=== PATIENT | female | born 1995 | race Caucasian/White ===

== ENCOUNTER 2020-06-26 03:09 | Observation (INO) | payer OTHER ==
[~2020-06-26] VITALS: Ht 160 cm; Wt 86.0 kg
[2020-06-26 03:13] VITALS: BP 115/61
--- NOTE | 2020-06-26 04:03 | NUR ---
Patient presents to ER c/o low quad abd pain, mostly in the RLQ. Patient was sent over from [facility] for funeral pre arrangement counselor consult. Patient states she was dx with cysts on ovaries. Patient is in NAD. Respirations even and unlabored.
[2020-06-26] MEDS ORDERED: BUPIVACAINE/PF 0.25% ONE (04:43)
[2020-06-26] MEDS ORDERED: EPINEPHRINE 1 MG/ML, 1ML ONE (04:44)
--- NOTE | 2020-06-26 04:47 | NUR ---
Report given to OR. Patient to be transferred to room 460 with RUDDY Haley.
[2020-06-26] MEDS ORDERED: FENTANYL PF 250 MCG/5ML ONE (04:48)
[2020-06-26] MEDS ORDERED: MIDAZOLAM 1 MG/ML, 2ML ONE (04:48)
[2020-06-26] MEDS ORDERED: ONDANSETRON 2MG/ML, 2ML IVPush PRN ×3 (05:00→06:00)
[2020-06-26] MEDS ORDERED: MORPHINE SULFATE 4 MG/ML, 1ML IVPush PRN (05:00)
[2020-06-26] MEDS ORDERED: DEXAMETHASONE 4 MG/ML, 1ML ONE (05:42)
[2020-06-26] MEDS ORDERED: GLYCOPYRROLATE 0.2MG/1ML, 5ML ONE (05:42)
[2020-06-26] MEDS ORDERED: ONDANSETRON 2MG/ML, 2ML ONE (05:42)
[2020-06-26] MEDS ORDERED: SUCCINYLCHOLINE 20 MG/ML, 10ML ONE (05:42)
[2020-06-26] MEDS ORDERED: NEOSTIGMINE 1 MG/ML, 10ML ONE (05:42)
[2020-06-26] MEDS ORDERED: ROCURONIUM 10MG/ML,5ML ONE (05:42)
[2020-06-26] MEDS ORDERED: PROPOFOL 10 MG/ML, 20ML ONE (05:42)
[2020-06-26] MEDS ORDERED: CEFAZOLIN 1,000 MG ONE (05:42)
[2020-06-26] MEDS ORDERED: LACTATED RINGERS 1,000 ML IV SCH (05:50)
[2020-06-26] MEDS ORDERED: KETOROLAC 30 MG/1 ML IVPush PRN (06:00)
[2020-06-26] MEDS ORDERED: HYDROcodone/APAP 5/325 TABLET PO PRN (06:00)
[2020-06-26] MEDS ORDERED: DIAZEPAM 5 MG/ML, 2ML IVPush PRN (06:00)
[2020-06-26] MEDS ORDERED: LORazepam 2 MG/ML, 1ML IVPush PRN (06:00)
[2020-06-26] MEDS ORDERED: ACETAMINOPHEN 325 MG TABLET PO PRN (06:00)
[2020-06-26] MEDS ORDERED: OXYcodone 5 MG/5 ML ORAL.SOL UDC PO PRN (06:00)
[2020-06-26] MEDS ORDERED: PROMETHAZINE 25 MG SUPP PR PRN (06:00)
[2020-06-26] MEDS ORDERED: PROMETHAZINE 25 MG/ML, 1ML IVPush PRN (06:00)
[2020-06-26] MEDS ORDERED: BUPIVACAINE/PF 0.25% INFIL ONE (06:00)
[2020-06-26] MEDS ORDERED: IBUPROFEN 600 MG TABLET PO PRN (06:00)
[2020-06-26] MEDS ORDERED: EPINEPHRINE 1 MG/ML, 1ML INFIL ONE (06:01)
[2020-06-26] MEDS ORDERED: KETOROLAC 30 MG/1 ML ONE (06:05)
[2020-06-26] MEDS ORDERED: FENTANYL PF 100 MCG/2ML ONE (06:05)
[2020-06-26] MEDS ORDERED: OXYcodone 5 MG/5 ML ORAL.SOL UDC ONE (06:05)
[2020-06-26] MEDS: FENTANYL PF 100 MCG/2ML IV PRN ×2 (06:11→06:16)
[2020-06-26] MEDS: HYDROmorphone 1 MG/ML, 1ML INJ IVPush PRN ×2 (06:19→06:24)
[2020-06-26] MEDS ORDERED: HYDROmorphone 1 MG/ML, 1ML INJ ONE (06:35)
[2020-06-26] MEDS ORDERED: HYDR-3240 PO (11:44)
[2020-06-26] MEDS ORDERED: IBUP200T49 PO (11:44)
== END 2020-06-26 11:54 | disposition home or self-care (01) ==
LOC: OR 04:52 → INTOOBSV 05:07 → EDIP 05:07 → 4NE 06:52 → DCLOUNGE 11:42
PROVIDERS: ADMIT Student in an Organized Health Care Education/Training Program; ATTEND Student in an Organized Health Care Education/Training Program
DX: Z03.818 Encounter for observation for suspected exposure to other biological agents ruled out (principal); N83.201 Unspecified ovarian cyst, right side; K66.1 Hemoperitoneum; Z91.040 Latex allergy status
CPT/HCPCS: 58662; 87635; 88304; 99284; G0378; J0171; J0330; J0690; J1100; J1170; J1885; J2250; J2405; J2704; J2710; J3010; J3490

== ENCOUNTER 2020-06-30 08:06 | Emergency (ER) | payer BC, OTHER ==
[~2020-06-30] VITALS: Ht 160 cm; Wt 85.2 kg
[~2020-06-30 08:06] MED LIST: HYDR-3240 PO; IBUP200T49 PO
[2020-06-30] MEDS ORDERED: KETOROLAC 30 MG/1 ML ONE (08:43)
[2020-06-30] MEDS ORDERED: SODIUM CHLORIDE 0.9% 1,000ML IVBOLUS ONE (09:00)
[2020-06-30] MEDS ORDERED: KETOROLAC 30 MG/1 ML IVPush ONE (09:00)
[2020-06-30 09:03] LABS: BASOPHILS # (AUTO) 0.03 x10^3/uL (0-0.1); BASOPHILS % (AUTO) 0 % (0-1); EOSINOPHILS # (AUTO) 0.05 x10^3/uL (0-0.4); EOSINOPHILS % (AUTO) 1 % (1-7); LYMPHOCYTES # (AUTO) 1.88 x10^3/uL (1-3.4); LYMPHOCYTES % (AUTO) 25 % (22-44); MD NO; MEAN CORPUSCULAR HEMOGLOBIN 27.7 pg (27.0-34.8); MEAN CORPUSCULAR HGB CONC 32.3 g/dL (32.4-35.8); MEAN CORPUSCULAR VOLUME 85.7 fL (80-100); MEAN PLATELET VOLUME 8.8 fL (7.4-10.4); MONOCYTES % (AUTO) 5 % (2-9); NEUTROPHILS # (AUTO) 5.26 x10^3/uL (1.8-6.8); NEUTROPHILS % (AUTO) 69 % (42-75); PLATELET COUNT 240 x10^3/uL (130-400); RED BLOOD COUNT 4.68 x10^6/uL (3.82-5.3); RED CELL DISTRIBUTION WIDTH 14.1 % (9.6-15.2)
--- NOTE | 2020-06-30 09:03 | NUR ---
PT AMBULATORY TO ROOM 19 W/ C/O RLQ ABD PAIN/CRAMPING. PT STATES SHE HAD OVARIAN TORSION SURGERY ON FRIDAY AND SHE STARTED HER MENSTRUAL CYCLE 2 DAYS AGO AND WAS DOING WELL BUT TODAY HAD INCREASING PAIN/CRAMPING. STATES SHE HAS NEVER HAD PAIN LIKE THAT BEFORE. PT RESTING ON GURNEY. NADN. VSS. MONITORS APPLIED. PIV INITIATED. MEDICATED PER JAN.
[2020-06-30 09:12] LABS: MICROSCOPIC AUTO
[2020-06-30 09:13] LABS: ALANINE AMINOTRANSFERASE 16 U/L (12-78); ALBUMIN 3.5 g/dL (3.4-5.0); ANION GAP 3 mmol/L (5-15); CALCIUM 8.5 mg/dL (8.5-10.1); CHLORIDE 110 mmol/L (98-107); CREATININE 0.85 mg/dL (0.55-1.02)
[2020-06-30 09:15] LABS: ALKALINE PHOSPHATASE 107 U/L (45-117); BILIRUBIN,TOTAL 0.4 mg/dL (0.2-1.0); TOTAL PROTEIN 7.5 g/dL (6.4-8.2)
[2020-06-30 10:36] VITALS: BP 125/60
== END 2020-06-30 10:51 | disposition home or self-care (01) ==
LOC: ED 08:46
DX: N94.6 Dysmenorrhea, unspecified (principal); R10.2 Pelvic and perineal pain; R68.83 Chills (without fever)
CPT/HCPCS: 36415; 76830; 80053; 81001; 83690; 85025; 87086; 96361; 96374; 99284; J1885; J7030